=== PATIENT | female | born 1950 | race Caucasian/White ===

== ENCOUNTER → 2017-05-05 | Outpatient (CLI) | payer MEDICARE, OTHER | END | disposition disaster alternative care site (69) | LOC: LGSMG 11:53 | DX: Z79.899 Other long term (current) drug therapy (principal); R60.9 Edema, unspecified; Z00.00 Encounter for general adult medical examination without abnormal findings; E78.5 Hyperlipidemia, unspecified; M32.14 Glomerular disease in systemic lupus erythematosus; M81.0 Age-related osteoporosis without current pathological fracture; E03.9 Hypothyroidism, unspecified; R80.9 Proteinuria, unspecified ==